=== PATIENT | male | born 1985 | race Caucasian/White ===

== ENCOUNTER 2017-11-22 05:26 | Day surgery (SDC) | payer BC ==
[~2017-11-22] VITALS: Ht 195.6 cm; Wt 111.5 kg
[~2017-11-22 05:26] MED LIST: CeFAZolin 2 GM/DEXTROSE 50 ML IV ONE; HYDR-309 PO; RINGERS SOLUTION,LACTATED 1,000 ML IV ONE
[2017-11-22] MEDS ORDERED: FentaNYL CITRATE-PF 100 MCG/2 ML VIAL IVP ONE (05:27)
[2017-11-22] MEDS ORDERED: ROCURONIUM BROMIDE 10 MG/ML 5 ML VIAL IVP ONE (05:27)
[2017-11-22] MEDS ORDERED: HYDROmorphone 2 MG/ML SYRINGE IVP ONE (05:27)
[2017-11-22] MEDS ORDERED: GLYCOPYRROLATE 0.2 MG/ML VIAL IM ONE (05:27)
[2017-11-22] MEDS ORDERED: NEOSTIGMINE METHYLSULFATE 1 MG/ML 10 ML VIAL IVP ONE (05:27)
[2017-11-22] MEDS ORDERED: MIDAZOLAM HCL 2 MG/2 ML VIAL IVP ONE (05:27)
[2017-11-22] MEDS ORDERED: LIDOCAINE HCL/PF 2% 5 ML SYRINGE IVP ONE (05:27)
[2017-11-22] MEDS ORDERED: PROPOFOL 1% 20 ML VIAL IVP ONE (05:27)
[2017-11-22] MEDS ORDERED: SUCCINYLCHOLINE CHLORIDE 20 MG/ML 10 ML VIAL IVP ONE (05:27)
[2017-11-22] MEDS ORDERED: DEXAMETHASONE SOD PHOS 4 MG/ML VIAL IVP ONE (05:27)
[2017-11-22] MEDS ORDERED: CeFAZolin 2 GM/DEXTROSE 50 ML IV ONE (06:00)
[2017-11-22 06:23] LABS: BASOPHILS % (AUTO) 0.8 % (0.0-2.0); HEMATOCRIT 40.3 % (41-53); HEMOGLOBIN 14.4 g/dL (13.5-17.5); LYMPHOCYTES # (AUTO) 2.4 K/uL (1.0-4.8); LYMPHOCYTES % (AUTO) 44.5 % (22.0-44.0); MEAN CORPUSCULAR HEMOGLOBIN 31.1 pg (26.0-34.0); MEAN CORPUSCULAR HGB CONC 35.8 G/dL (31.0-37.0); MEAN CORPUSCULAR VOLUME 87 fL (80-100); MONOCYTES # (AUTO) 0.7 K/uL (0.1-1.0); MONOCYTES % (AUTO) 12.9 % (2.0-9.0); NEUTROPHILS # (AUTO) 2.1 K/uL (1.8-7.7); NEUTROPHILS % (AUTO) 39.8 % (40.0-70.0); PLATELET COUNT (AUTO) 253 K/uL (150-450); RED BLOOD CELL COUNT(AUTO) 4.65 MIL/uL (4.50-5.90); RED CELL DISTRIBUTION WIDTH 12.8 % (11.5-14.5)
[2017-11-22] MEDS ORDERED: SODIUM CHLORIDE 0.9% 1,000 ML IV ONE (06:43)
[2017-11-22] MEDS ORDERED: BUPIVACAINE HCL/PF 0.25% 30 ML VIAL ONE (06:43)
[2017-11-22] MEDS ORDERED: MUPIROCIN CALCIUM 2% 22 GM OINTMENT ONE (06:43)
[2017-11-22] MEDS ORDERED: VANCOMYCIN HCL 1 GM/VIAL ONE (06:43)
[2017-11-22] MEDS ORDERED: MEPERIDINE HCL/PF 25 MG/0.5 ML AMP IVP PRN (07:45)
[2017-11-22] MEDS ORDERED: OXYGEN THERAPY IH SCH (08:00)
[2017-11-22] MEDS ORDERED: RINGERS SOLUTION,LACTATED 1,000 ML IV ONE (08:56)
[2017-11-22] MEDS ORDERED: FentaNYL CITRATE-PF 100 MCG/2 ML VIAL ONE (09:10)
[2017-11-22] MEDS: FentaNYL CITRATE-PF 100 MCG/2 ML VIAL IVP PRN ×2 (09:12→09:18)
[2017-11-22] MEDS ORDERED: HYDROmorphone 2 MG/ML SYRINGE ONE (09:21)
[2017-11-22] MEDS: HYDROmorphone 2 MG/ML SYRINGE IVP PRN ×2 (09:26→09:35)
== END 2017-11-22 10:55 | disposition home or self-care (01) ==
LOC: SURGERY 05:26
PROVIDERS: ATTEND Orthopaedic Surgery
DX: S62.613A Displaced fracture of proximal phalanx of left middle finger, initial encounter for closed fracture (principal); S66.822A Laceration of other specified muscles, fascia and tendons at wrist and hand level, left hand, initial encounter; I44.0 Atrioventricular block, first degree; Z72.89 Other problems related to lifestyle; Z79.891 Long term (current) use of opiate analgesic; Z87.891 Personal history of nicotine dependence; X58.XXXA Exposure to other specified factors, initial encounter; Y93.89 Activity, other specified; Y92.89 Other specified places as the place of occurrence of the external cause; Y99.8 Other external cause status
CPT/HCPCS: 26410; 26727; 36415; 85025; 93005; C1713; C1769; J0330; J0690 ×2; J1100; J1170; J2250; J2704; J3010; J3370; J3490 ×4; J7030; J7120